=== PATIENT | female | born 1985 | race Two or more races ===

== ENCOUNTER 2017-08-07 01:12 | Outpatient (CLI) | payer OTHER | END 2017-08-07 10:07 | disposition home or self-care (01) | LOC: OBS/DEL 01:12 → LDR 01:52 → OBS/DEL 01:55 | DX: O23.593 Infection of other part of genital tract in pregnancy, third trimester (principal); N76.0 Acute vaginitis; O60.03 Preterm labor without delivery, third trimester; Z34.83 Encounter for supervision of other normal pregnancy, third trimester ==